=== PATIENT | male | born 2000 | race Caucasian/White ===

== ENCOUNTER 2025-01-04 07:38 | Outpatient (CLI) | payer BC, SELFPAY ==
--- NOTE | 2025-01-04 07:39 | CT_ITS ---
FINAL REPORT CLINICAL HISTORY: right groin pain/bulge COMPARISON: None FINDINGS: CT PELVIS WITH CONTRAST TECHNIQUE: Axial CT images of the pelvis were performed from the region of the umbilicus through the proximal femurs. Coronal and sagittal multiplanar reconstructions were performed. This study was performed with techniques to keep radiation doses as low as reasonably achievable (ALARA). Individualized dose reduction techniques using automated exposure control or adjustment of mA and/or kV according to the patient's size were employed. FINDINGS: The pelvic bowel is unremarkable. The appendix is normal in appearance. No adenopathy is noted in the pelvis or inguinal regions. No inguinal hernia is identified. IMPRESSION: No evidence of hernia or mass. Reviewed, Interpreted and Dictated by Guerrero Smith MD Transcribed by Ayana Dooley Authenticated and [facility]
[2025-01-04] MEDS: SODIUM CHLORIDE 0.9% 10ML SYR (RAD ONLY) 10 ML IV (08:10)
[2025-01-04] MEDS: IOPAMIDOL-370 (76%);100ML BOTTLE 75 ML IV (08:11)
== END 2025-01-04 23:59 | disposition home or self-care (01) ==
LOC: RAD 07:39
PROVIDERS: PCP Nurse Practitioner; Visit Provider Nurse Practitioner
DX: R10.31 Right lower quadrant pain (principal); R19.09 Other intra-abdominal and pelvic swelling, mass and lump
CPT/HCPCS: 72193; Q9967

== ENCOUNTER 2025-02-05 10:02 | Outpatient (CLI) | payer BC, SELFPAY ==
[2025-02-05 10:32] LABS: Microscopic, Urine URINE MICROSCOPIC (MICROSCOPIC)
[2025-02-05 10:35] LABS: Appearance,Urine CLEAR (Clear); Basophils % 0.8 % (0.1-2.0); Bilirubin,Urine Negative (Negative); Blood, Urine Negative (Negative); Color,Urine YELLOW (Yellow); Eosinophils # 0.2 K/mm3 (0.0-0.4); Eosinophils % 4.1 % (0.1-12.0); Glucose,Urine (UA) Negative (Negative); Hematocrit 47.2 % (42.0-52.0); Ketones,Urine Negative (Negative); Leukocyte Esterase,Urine Negative (Negative); Lymphocytes # 1.3 K/mm3 (0.7-4.5); Lymphocytes % 24.3 % (10-50); Mean Corpuscular HGB Conc 33.9 g/dL (31.8-35.4); Mean Corpuscular Hemoglobin 27.6 pg (27.0-31.2); Mean Corpuscular Volume 81.4 fl (80-94); Mean Platelet Volume 8.6 fl (7.4-10.4); Monocytes # 0.4 K/mm3 (0.1-1.0); Neutrophils # 3.2 K/mm3 (1.8-7.8); Neutrophils % 62.6 % (37.0-80.0); Nitrate,Urine Negative (Negative); PH,Urine 6.5 (5.0-8.5); Platelet Count 284 K/mm3 (142-424); Protein,Urine Negative (Negative); Specific Gravity, Urine 1.025 (1.005-1.030); Urobilinogen,Urine 0.2 EU/dl (0.2); White Blood Count 5.2 K/mm3 (4.8-10.8)
[2025-02-05 10:41] LABS: Bacteria,Urine Trace /lpf; Chloride 103 mmol/L (98-107); Sodium 139 mmol/L (136-145); Squamous Epithelial Cell,Urine Occasional #/hpf (0-5)
[2025-02-05 10:42] LABS: Potassium 3.8 mmoL/L (3.5-5.1)
[2025-02-05 10:45] LABS: Anion Gap 11.8 mEq/L (5-15); Blood Urea Nitrogen 10 mg/dl (9-20); Calcium 9.4 mg/dl (8.4-10.2); Carbon Dioxide 28 mmol/L (22.0-30.0); Estimated Glomerular Filt Rate 136 ml/min (>60); GFR (African American) 165 ML/MIN (>60); Glucose 98 mg/dl (74-100)
== END 2025-02-05 23:59 | disposition home or self-care (01) ==
LOC: PREOP 10:04
PROVIDERS: PCP Nurse Practitioner; Visit Provider Surgery
DX: K40.90 Unilateral inguinal hernia, without obstruction or gangrene, not specified as recurrent (principal)
CPT/HCPCS: 80048; 81001; 85025

== ENCOUNTER 2025-02-11 06:06 | Day surgery (SDC) | payer BC, SELFPAY ==
[2025-02-05 11:11] VITALS: BMI 25.4
[2025-02-11] VITALS (9 sets, daily range): BP systolic 110–140; BP diastolic 48–89; PULSE 93–129; RESP 16–18; TEMP 36.7–36.9; O2SAT 95–100
[2025-02-11] MEDS: 0.9 % SODIUM CHLORIDE 1000ML 1,000 ML 25 ML IV (06:31)
--- NOTE | 2025-02-11 06:55 | P.PNANES_ITS ---
[facility] Disclaimer: The information contained in this section may have been updated after the patient was seen, as this information can be updated by other users. Medical History No significant past medical history Surgical History No history of previous surgery Family History Other Family history of heart disease Social History Smoking Status: Never smoker alcohol intake: never substance use type: denies use current occupational status: employed Travel in the last 8 weeks: None [facility] Anesthesia Checklist Patient Identification Patient Identification: Arm Band and Family Structural Data Admitted From: Home Planned Operative Procedure/s: Right Inguinal hernia repair Consent for Planned Operative Procedure(s) Verified: Yes Verified Documents: Surgical Consent and History and Physical NPO Status Verified Time NPO: 00:00 Additional verifications Patient : No Anesthesia Reactions: No Hx Blood Transfusions: No Blood Transfusion Reaction: No Cephalosporin Allergy: No Previous Colonoscopy: No Airway Assessment Mallampati Score:: Class III C-Spine Mobility Assessed: Yes TMJ Mobility Assessed: Yes Dentition: Good Dentition Neurological Assessment Level of Consciousness: Awake, Alert, Appropriate and Follows Commands Anesthesia Plan Anesthesia Risk discussed: Yes ASA Class: I Anesthesia Type: General
[2025-02-11] MEDS: CEFAZOLIN SODIUM 2 GM in 0.9 % SODIUM CHLORIDE 100 ML IV (07:15)
[2025-02-11] MEDS: LIDOCAINE 1% 20ML MDV 20 ML (07:23)
--- NOTE | 2025-02-11 08:41 | EXP.OP.NOTE ---
Date of procedure: 02/11/25 Pre-op Diagnosis:: Right inguinal hernia Post-op Diagnosis:: Same Procedure performed:: Open right inguinal hernia repair Surgeon:: Jake Morocho MD PLANT [employer]AF[employer] ENGINEER:: Jayro French Anesthesia: local and LMA Estimated blood loss (mL): 15 Operative findings:: Indirect defect with significant soft tissue stranding throughout canal Small direct defect Operative note:: After informed consent was obtained the patient was taken to the operating room and placed in the supine position. General anesthesia with laryngeal mask airway was induced. His abdomen and groin/scrotum were prepped and draped in a sterile fashion. After infiltration with local anesthetic an oblique right groin incision was made. Electrocautery was utilized to transect through Efe's fascia to the level of the external aponeurosis. The external aponeurosis was sharply opened to the level of the external ring. The contents of the canal were carefully elevated. Significant soft tissue stranding noted. The hernia sac was carefully dissected free from surrounding tissue. An extra-large PerFix plug was then secured in position with interrupted Ethibond. The PerFix overlay was then secured with interrupted Ethibond to the shelving edge inferiorly and fascial margin superiorly. The external aponeurosis was reapproximated with running Vicryl suture. Efe's fascia was closed in a similar manner. Skin was then reapproximated utilizing the INSORB stapling device. Dressings were applied and the patient was transferred to recovery in stable condition. Condition: stable Disposition: PACU Specimens:: None Complications:: No immediate
--- NOTE | 2025-02-11 08:55 | P.PNANES_ITS ---
[facility] Anesthesia Record Part I Anesthesia Record I Intake, IV Amount: 90 Hydration: Adequate Estimated blood loss (mL): 10 Urine output (mL): 50 Blood Products used (#): none Blood Pressure: 140/48 SaO2: 99 Pulse Rate: 108 Airway Patency: Patent Respiratory Rate: 16 Temperature: 98.4 F Patient is:: Drowsy and Stable Stable to PACU at:: 08:45
--- NOTE | 2025-02-11 09:43 | SUR.PHASEII ---
Pt requesting tylenol for post op pain, refusing narcotics. Message sent to OR for one time order
[2025-02-11] MEDS: ACETAMINOPHEN 325MG TAB 650 MG (09:50)
[2025-02-12 08:05] VITALS: BP 119/88; PULSE 108; RESP 18; TEMP 36.9; O2SAT 100
--- NOTE | 2025-02-12 08:05 | P.PNANES_ITS ---
[facility] Anesthesia Record Part II Anesthesia Record Part II Discharge Time: 09:15 Destination: Surgical Day Care (OP Surgery) PACU nurse assessment reviewed?: Yes Patient Condition:: Good Anesthesia Complications:: None Swallowing reflex intact?: Yes Airway Patency: Patent Cyanosis?: No Blood Pressure: 119/88 SaO2: 100 Respiratory Rate: 18 Pulse Rate: 108 Temperature: 98.4 F Mental Status: Alert & Oriented Pain level:: 4 Nausea and/or vomitting:: None Intake, IV Amount: 0 Hydration: Adequate
== END 2025-02-11 10:00 | disposition home or self-care (01) ==
PROVIDERS: PCP Nurse Practitioner; Visit Provider Surgery
PROC: (CPT 49505; principal; 2025-02-11 07:30)
DX: K40.90 Unilateral inguinal hernia, without obstruction or gangrene, not specified as recurrent (principal)
CPT/HCPCS: 49505; J3490; J0690; J1100; J2250; J2405; J3010; J7030